=== PATIENT | male | born 1985 | race Caucasian/White ===

== ENCOUNTER 2020-12-10 15:19 | Emergency (ER) | payer BC, MEDICAID ==
[2020-12-10 15:27] VITALS: BP 144/81
--- NOTE | 2020-12-10 15:53 | ED Physician Documentation ---
History of Present Illness - Stated complaint Stated Complaint: L EAR PX - Chief complaint Chief Complaint: Heent - Additonal information Additional information: 34-year-old male presents emergency department for evaluation of 2 days left ear pain and muffled hearing. No fevers. He does report a chronic sore throat for about 2 years which he attributes to postnasal drip. He is attempting to get into an ENT. He reports that as a child he had recurrent inner ear infections. He has had no vomiting vertiginous symptoms no trismus or tinnitus Review of Systems Constitutional: reports: Reviewed and negative Eyes: reports: Reviewed and negative Ears: reports: Ear pain, Drainage/discharge Nose: reports: Reviewed and negative Throat: reports: Reviewed and negative Cardiac: reports: Reviewed and negative Respiratory: reports: Reviewed and negative PD PAST MEDICAL HISTORY - Present Medications Home Medications: Ambulatory Orders Medication Instructions Recorded Confirmed Ofloxacin [Ofloxacin Otic drops] 5 ml OT BID #1 bottle 12/10/20 - Allergies Allergies/Adverse Reactions: Allergies Allergy/AdvReac Type Severity Reaction Status Date / Time No Known Drug Allergies Allergy Verified 12/10/20 15:27 PD ED PE EXPANDED - General General: Alert, No acute distress - HEENT HEENT: Moist mucous membranes, Pharyngeal erythema. No: Ears normal (Right EAC and TM unremarkable. Left EAC 100% occluded with soft cerumen and debris. It was copiously irrigated with warm saline which revealed nearly full resolution of the obstruction though the ear canal remained erythematous. Portion of the visible TM was intact.) Results - Vitals Vitals: Vital Signs - 24 hr 12/10/20 15:25 Temperature 36.6 C Heart Rate 86 Respiratory 16 Rate Blood Pressure 144/81 H O2 Saturation 100 Oxygen O2 Source Room air PD MEDICAL DECISION MAKING - ED course Complexity details: d/w patient, d/w family ED course: 34-year-old male presents the emergency department for evaluation of 2 days left ear pain muffled hearing. No fevers. On exam he had nearly 100% occlusion of the ear canal with soft wax. This was copiously irrigated and on reexam appears to have otitis externa. The visible portion of the TM appeared intact. He will be started on ofloxacin drops. Recommend to return to the ER if symptoms not markedly improving following these drops or if he has any concerns of worsening pain. I have recommended that he continue to follow-up with ENT for the reported sore throat for 2 years duration. Departure - Departure Disposition: 01 Home, Self Care Clinical Impression: Left ear impacted cerumen Left otitis externa Qualifiers: Otitis externa type: unspecified type Chronicity: acute Qualified Code(s): H60.502 - Unspecified acute noninfective otitis externa, left ear Condition: Stable Record reviewed to determine appropriate education?: Yes Instructions: ED Otitis Externa Ch Prescriptions: Ofloxacin [Ofloxacin Otic drops] 5 ml OT BID #1 bottle Comments: Ashwin the pain in your left ear up peers to be secondary to an inner ear infection likely a result of impacted cerumen. We have irrigated is much of the earwax out that we are safely able to. Your ear canal is rather inflamed. Please fill the prescription for the ofloxacin drops placed 5 drops in your left ear twice daily for 7 days. Attempt to keep your left ear pointed up towards the ceiling for about 5 minutes after drop installation to allow the medication to fully flow into the ear canal. If at any point you feel that your symptoms are worsening, you develop fevers have ear swelling or severe sore throat then please return to the ER. Because you discussed with this provider that you have been having a sore throat for about 2 years I do heavily recommend that you see an ear nose throat provider to discuss if chronic postnasal drip could be contributing.
== END 2020-12-10 16:09 | disposition home or self-care (01) ==
LOC: ED 15:19
DX: H61.22 Impacted cerumen, left ear (principal); H60.502 Unspecified acute noninfective otitis externa, left ear
CPT/HCPCS: 99282; 99283